=== PATIENT | male | born 1965 | race Caucasian/White ===

== ENCOUNTER 2021-12-16 08:29 | Outpatient (REF) | payer BC, SELFPAY ==
[2021-12-16 11:02] LABS: MANUAL DIFF FLAG NO
[2021-12-16 11:07] LABS: Basophils Absolute Auto 0.1 X10*3/uL (0.0-0.2); Basophils Percent Auto 0.8 % (0-2); Eosinophils Absolute Auto 0.1 X10*3/uL (0.0-0.4); Eosinophils Percent Auto 1.1 % (0-4); Hematocrit 43.6 % (42.0-52.0); Hemoglobin 14.5 g/dl (14.0-18.0); Imm Gran Abs Auto 0.01 X10*3/uL (0.00-0.03); Imm Gran Pct Auto 0.1 % (0.0-0.4); Lymphocytes Absolute Auto 2.4 X10*3/uL (1.2-4.9); Lymphocytes Percent Auto 31.6 % (20-40); Mean Corpuscular HGB Conc 33.3 g/dl (31.0-36.0); Mean Corpuscular Hemoglobin 32.8 pg (27.0-33.0); Mean Corpuscular Volume 98.6 fL (80.0-98.0); Mean Platelet Volume 11.9 fL (9.4-12.4); Monocytes Absolute Auto 0.7 X10*3/uL (0.1-1.2); Monocytes Percent Auto 9.4 % (2-11); Neutrophils Absolute Auto 4.3 x10*3/uL (2.0-8.3); Platelet Count 200 X10*3/uL (160-400); Red Blood Count 4.42 X10*6/uL (4.60-5.80); Red Cell Distribution Width 12.8 % (11.0-16.0); White Blood Count 7.5 X10*3/uL (4.8-10.8)
[2021-12-16 11:34] LABS: Alanine Aminotransferase 25 U/L (0-40); Albumin Level 4.2 g/dL (3.5-5.0); Alkaline Phosphatase 75 U/L (39-117); Anion Gap 10 (12-20); Aspartate Amino Transferase 23 U/L (5-37); Blood Urea Nitrogen 20 mg/dL (9-16); Calcium 9.4 mg/dL (8.4-10.2); Carbon Dioxide 29 mmol/L (22-29); Chloride 104 mmol/L (96-108); Cholesterol 193 mg/dL; Estimated Glomerular Filt Rate > 60; Glucose Fasting 88 mg/dL (60-99); HDL Cholesterol 47 mg/dL; LDL Cholesterol Calculated 123 mg/dl; Potassium 4.4 mmol/L (3.3-5.1); Sodium 139 mmol/L (135-145); Total Protein 7.3 g/dL (6.5-8.0); Triglycerides 116 mg/dL
[2021-12-16 11:41] LABS: Prostate Specific Antigen Scr 2.07 ng/mL (<0.05-4.0)
== END 2021-12-16 08:30 | disposition home or self-care (01) ==
LOC: HO.10HDL 08:29
PROVIDERS: Visit Provider Internal Medicine
DX: Z00.00 Encounter for general adult medical examination without abnormal findings (principal); Z12.5 Encounter for screening for malignant neoplasm of prostate
CPT/HCPCS: 36415; 80053; 80061; 84153; 85025

== ENCOUNTER 2022-03-18 15:50 | Outpatient (REF) | payer BC, SELFPAY ==
[2022-03-18 16:01] LABS: MANUAL DIFF FLAG NO
[2022-03-18 16:08] LABS: Basophils Absolute Auto 0.1 X10*3/uL (0.0-0.2); Basophils Percent Auto 0.5 % (0-2); Eosinophils Absolute Auto 0.1 X10*3/uL (0.0-0.4); Eosinophils Percent Auto 0.7 % (0-4); Hematocrit 41.9 % (42.0-52.0); Hemoglobin 14.3 g/dl (14.0-18.0); Imm Gran Abs Auto 0.03 X10*3/uL (0.00-0.03); Imm Gran Pct Auto 0.3 % (0.0-0.4); Lymphocytes Percent Auto 29.3 % (20-40); Mean Corpuscular HGB Conc 34.1 g/dl (31.0-36.0); Mean Corpuscular Hemoglobin 33.6 pg (27.0-33.0); Mean Corpuscular Volume 98.6 fL (80.0-98.0); Mean Platelet Volume 11.3 fL (9.4-12.4); Monocytes Absolute Auto 0.6 X10*3/uL (0.1-1.2); Monocytes Percent Auto 6.1 % (2-11); Neutrophils Absolute Auto 6.4 x10*3/uL (2.0-8.3); Neutrophils Percent Auto 63.1 % (45-73); Platelet Count 186 X10*3/uL (160-400); Red Blood Count 4.25 X10*6/uL (4.60-5.80); Red Cell Distribution Width 13.1 % (11.0-16.0); White Blood Count 10.1 X10*3/uL (4.8-10.8)
[2022-03-18 16:41] LABS: C Reactive Protein 0.09 mg/dL (< or = 0.50)
[2022-03-18 16:56] LABS: Lactate Dehydrogenase 155 U/L (118-273)
== END 2022-03-18 15:51 | disposition home or self-care (01) ==
LOC: HO.LAB 15:50
PROVIDERS: PCP Internal Medicine; Visit Provider Internal Medicine
DX: R19.09 Other intra-abdominal and pelvic swelling, mass and lump (principal)
CPT/HCPCS: 36415; 83615; 85025; 86140

== ENCOUNTER 2022-04-06 15:23 | Outpatient (REF) | payer BC, SELFPAY ==
--- NOTE | ~2022-04-06 | US_ITS ---
EXAMINATION: US EXTREMITY NON-VASCULAR, LIMITED CLINICAL INFORMATION: Left lateral inguinal nodule. COMPARISON: None TECHNIQUE: Limited ultrasound imaging through the left inguinal area was performed. FINDINGS: There is a complex cystic, solid, lobulated lesion with central heterogeneity and central vascularity on color ultrasound images. It measures 4.42 x 1.89 x 1.11 cm. There are small adjacent benign-appearing lymph nodes measuring 0.80 x 0.63 x 0.648 cm. There are additional lymph nodes which are also palpable measuring 0.9 x 0.45 x 0.69 cm. No evidence of hernia or fluid is seen. US/US extremity nonvascular [place] IMPRESSION: Complex larger lesion in the left inguinal region, likely an atypical lymph node. There are adjacent typical small, normal-appearing lymph nodes in the vicinity. Recommend ultrasound-guided fine-needle biopsy aspiration of this complex slightly vascular lesion.
== END 2022-04-06 15:24 | disposition home or self-care (01) ==
LOC: HO.HMGCX 15:23
PROVIDERS: Visit Provider Internal Medicine
DX: R22.42 Localized swelling, mass and lump, left lower limb (principal)
CPT/HCPCS: 76882

== ENCOUNTER → 2022-05-04 08:46 | Day surgery (SDC) | payer BC, SELFPAY ==
--- NOTE | ~2022-05-04 | US_ITS ---
EXAMINATION: ULTRASOUND-GUIDED BIOPSY LYMPH NODE CLINICAL INFORMATION: Left groin mass. COMPARISON: Previous ultrasound 04/06/2022. TECHNIQUE: Procedure and risks and benefits including bleeding and infection were discussed with the patient and informed consent was obtained. The left groin was prepped and draped in the usual sterile fashion. The skin and soft tissues were anesthetized with 1% lidocaine plain. Using ultrasound guidance and a coaxial system, access to the left groin mass was obtained. 5 20-gauge core biopsies were obtained. Specimens were sent for pathology and microbiology studies. FINDINGS: There is a 1.3 x 1.5 x 2 cm hypoechoic slightly heterogeneous lesion just deep to the skin with minimal peripheral vascularity in the left groin that was targeted for biopsy. There are adjacent small normal-appearing lymph nodes. US/US biopsy lymph node IMPRESSION: Ultrasound-guided biopsy of left groin mass.
[2022-05-04] MEDS: Lidocaine HCl 1 % MPF 5 ML VIAL SUBCUT (10:34)
== END ==
PROVIDERS: Radiology Diagnostic Radiology; PCP Internal Medicine; Visit Provider Internal Medicine
DX: R22.2 Localized swelling, mass and lump, trunk (principal)
CPT/HCPCS: 36415; 38505; 76942; 87071; 87073; 87205; 88184; 88185; 88305; 88341; 88342; 88360

== ENCOUNTER 2022-06-29 05:58 | Day surgery (SDC) | payer BC, SELFPAY ==
[2022-06-23 09:45] VITALS: BMI 26.4
--- NOTE | 2022-06-28 08:51 | P.CONAN_ITS ---
Documented by User: Leelee Childers NP 06/28/22 08:52 HPI - Anesthesia Eval Consult details Narrative: 56yo M for Left Excision inguinal lymph node PMFSH Active Problems Active Problems: All Active Problems (Updated 06/23/22 @ 09:48 by Janneth Shaw, RN) Inguinal lymphadenopathy (Acute) Past Medical History Medical History (Updated 06/23/22 @ 09:48 by Janneth Shaw, RN) Basal cell carcinoma No pertinent past medical history Surgical History Surgical History (Updated 06/23/22 @ 09:44 by Janneth Shaw, RN) History of basal cell carcinoma (BCC) excision Hx of colonoscopy Social History Social History Are you a primary daycare worker to a significant other at home: No Do you presently have visiting nurse or other home services: No Alcohol intake: current Alcohol intake frequency: a few times a week Patient Tobacco Use Status: Never used Tobacco Use of substances other than those prescribed or required for medical reasons: No Have you been hit, kicked, punched, or otherwise hurt by someone within the past year? If so, by whom?: No Are you DNR?: No Advance Directives: No Advance Directives Information Provided: Yes Advance Directives on File: No Recently lost weight without trying: No Eating poorly because of decreased appetite: No Nutrition Risks: No Nutritional Risk Meds Allergies Allergy/AdvReac Type Severity Reaction Status Date / Time No Known Allergies Allergy Unverified 06/23/22 09:44 Home Medications Medication Instructions Recorded Confirmed Last Taken Type No Known Home Meds 06/09/22 06/23/22 Unknown History Exam Exam Date and Time: June 28, 2022 0851 Height,Weight and Vital Signs: Height 5 ft 10 in Weight 83.461 kg Pertinent Lab Results Pertinent Lab Results: Laboratory Tests 12/16/21 03/18/22 08:35 16:01 WBC 10.1 Hgb 14.3 Hct 41.9 L Plt Count 186 Sodium 139 Potassium 4.4 Chloride 104 Carbon Dioxide 29 BUN 20 H Creatinine 1.07 Assessment and Plan Assessment Anesthesia Assessment: Chart Reviewed Documented by User: Christian Davies MD 06/29/22 07:09 [facility] Past Medical History Medical History (Updated 06/23/22 @ 09:48 by Janneth Shaw, RN) Basal cell carcinoma No pertinent past medical history Family History Family history of problems with anesthesia: No Surgical History Surgical History (Updated 06/23/22 @ 09:44 by Janneth Shaw RN) History of basal cell carcinoma (BCC) excision Hx of colonoscopy History of Problems with Anesthesia: No Social History Social History Are you a primary daycare worker to a significant other at home: No Do you presently have visiting nurse or other home services: No Alcohol intake: current Alcohol intake frequency: a few times a week Patient Tobacco Use Status: Never used Tobacco Use of substances other than those prescribed or required for medical reasons: No Have you been hit, kicked, punched, or otherwise hurt by someone within the past year? If so, by whom?: No Are you DNR?: No Advance Directives: No Advance Directives Information Provided: Yes Advance Directives on File: No Recently lost weight without trying: No Eating poorly because of decreased appetite: No Nutrition Risks: No Nutritional Risk Meds Allergies Allergy/AdvReac Type Severity Reaction Status Date / Time No Known Allergies Allergy Unverified 06/23/22 09:44 Home Medications Medication Instructions Recorded Confirmed Last Taken Type No Known Home Meds 06/09/22 06/23/22 Unknown History Exam Airway Mallampati Class: I TM Dist: >3cm Neck ROM: Full Loose/Missing/Broken Teeth: No Heart: ok Lungs: ok Assessment and Plan Final Anesthetic Review Family History of Problems with Anesthesia: No History of Problems with Anesthesia: No NPO: Yes ASA Class: I Final Preanesthetic Review: No Changes in Pt Med Stat, Meds/Allgs Chart Reviewed, Consent Obtained/Reviewed and Anes Risks/Benef Reviewed Patient Risk: Low Procedure Risk: Low Anesthetic Plan Anesthetic Plan: GA, MAC: and Agree w/ Assess. and Plan Disposition: Standard PACU
[2022-06-29 06:18] VITALS: BP 143/72; PULSE 52; RESP 16; TEMP 36.8; O2SAT 100
[2022-06-29] MEDS: Lactated Ringers 1,000 ML 100 ML IVCONT (06:27)
--- NOTE | 2022-06-29 07:17 | MHC.SHP ---
Pre-Procedural Eval Section A Date of Service: 06/29/22 The patient is an INPATIENT: No Changes since office visit: Yes Patient answered all questions; No Cold of Flu in the past 2 weeks, No New Medical Problems and No Changes in Medication The History & Physical has been completed within 30 days and I have reviewed it.: Yes Section B Chief Complaint: Localized enlarged lymph nodes Allergies: Allergies Allergy/AdvReac Type Severity Reaction Status Date / Time No Known Allergies Allergy Unverified 06/23/22 09:44 Plan Diagnosis/Plan: Unchanged I have reviewed the history and physical and performed a pertinent physical examination on my patient. No changes have occurred unless specified.
--- NOTE | 2022-06-29 08:21 | P.OP_ITS ---
Operative Note Operative Note Date of Service: 06/29/22 Narrative: Preoperative diagnosis: Left inguinal lymphadenopathy Postoperative diagnosis: same Procedure: excision of left inguinal lymph node Surgeon: Davon Polanco MD Box Truck Driver: AAKASH Mcallister Anesthesia:MAC Indications for procedure: 56-year-old male patient presenting with enlarged lymph nodes in the left inguinal region. Previous needle biopsy was nondiagnostic. Patient presents now for of excision of enlarged lymph nodes. Operative findings: multiple enlarged lymph nodes the largest measuring approximately 2.0 cm. Specimen: lymph node Estimated blood loss: less than 2 mL Complications: none Procedure details: patient was brought to the OR placed in a supine position. After administering sedation the patient's left groin was prepped with ChloraPrep and draped in a sterile fashion. A surgical time-out was called the consent confirmed. Patient received preoperative antibiotics and Venodyne boots were in place. Local anesthesia consisting of 1% lidocaine plain followed by 0.5% Sensorcaine was infiltrated over the palpable lymph node just above the left inguinal crease. Incision was then made in the same location carried out through subcutaneous tissue up to the palpable lymph node. Electrocautery was then used to dissect around the lymph node completely. Several smaller lymph nodes were noted in the region over left in place. Hemostasis was assured all times using electrocautery. Specimen was removed and sent immediately to pathology for further examination. After assuring adequate hemostasis the wounds were irrigated with saline solution and suctioned dry. Deep tissue was reapproximated using interrupted 3- 0 Polysorb sutures. Dermis was reapproximated using interrupted 3-0 Polysorb sutures. Skin was then closed using a running subcuticular 4-0 Polysorb suture. Steri-Strips, 2 x 2 gauze and Tegaderm were then applied. The patient tolerated the procedure well. Sponge, instrument, and needle counts reported as correct. The patient was transferred to PACU in stable condition.
[2022-06-29 08:28] VITALS: BP 140/86; PULSE 49; RESP 14; TEMP 36.2; O2SAT 100
[2022-06-29 08:51] VITALS: BP 138/84; PULSE 46; RESP 18; TEMP 36.2; O2SAT 100
== END 2022-06-29 09:23 | disposition home or self-care (01) ==
PROVIDERS: PCP Internal Medicine; Visit Provider Surgery
PROC: (CPT 38531; principal; 2022-06-29 07:30)
DX: R59.0 Localized enlarged lymph nodes (principal); Z85.828 Personal history of other malignant neoplasm of skin
CPT/HCPCS: 38531; 36415; 88184; 88185; 88305; 88341; 88342; 88360; 88374; 88377; J0690; J2250; J2795; J3010

== ENCOUNTER 2023-11-30 15:05 | Outpatient (REF) | payer BC, SELFPAY ==
--- NOTE | ~2023-11-30 | XR_ITS ---
EXAMINATION: XR cervical spine 5V CLINICAL INFORMATION: Pain COMPARISON: None TECHNIQUE: 6 views of the cervical spine were obtained. FINDINGS: The cervical spine is visualized to the level of C6-C7 on the lateral view. Vertebral body alignment is maintained. Vertebral body heights are maintained. Lateral masses of C1 are well aligned on C2. Visualized portion of the dens is intact. Moderate degenerative disc disease at C5-C6, manifested by loss of disc space height. Uncovertebral hypertrophy and facet arthropathy results in moderate to severe neural foraminal narrowing on the right at multiple levels and in moderate to severe neural foraminal narrowing on the left at C4-C5 and C5-C6. No prevertebral soft tissue swelling. XR/XR cervical spine 5V IMPRESSION: 1. Moderate degenerative disc disease at C5-C6, manifested by loss of disc space height. 2. Uncovertebral hypertrophy and facet arthropathy results in moderate to severe neural foraminal narrowing on the right at multiple levels and in moderate to severe neural foraminal narrowing on the left at C4-C5 and C5-C6.
== END 2023-11-30 15:06 | disposition home or self-care (01) ==
LOC: HO.XRAY 15:05
PROVIDERS: PCP Internal Medicine; Visit Provider Internal Medicine
DX: M54.2 Cervicalgia (principal)
CPT/HCPCS: 72050

== ENCOUNTER 2024-04-18 07:57 | Outpatient (REF) | payer BC, SELFPAY ==
[2024-04-18 10:43] LABS: Basophils Absolute Auto 0.1 X10*3/uL (0.0-0.2); Basophils Percent Auto 0.6 % (0-2); Eosinophils Absolute Auto 0.1 X10*3/uL (0.0-0.4); Eosinophils Percent Auto 1.5 % (0-4); Hematocrit 42.5 % (42.0-52.0); Hemoglobin 14.6 g/dl (14.0-18.0); Imm Gran Abs Auto 0.03 X10*3/uL (0.00-0.03); Imm Gran Pct Auto 0.3 % (0.0-0.4); Lymphocytes Absolute Auto 3.5 X10*3/uL (1.2-4.9); Lymphocytes Percent Auto 38.2 % (20-40); MANUAL DIFF FLAG NO; Mean Corpuscular HGB Conc 34.4 g/dl (31.0-36.0); Mean Corpuscular Hemoglobin 33.1 pg (27.0-33.0); Mean Corpuscular Volume 96.4 fL (80.0-98.0); Mean Platelet Volume 12.1 fL (9.4-12.4); Monocytes Absolute Auto 0.7 X10*3/uL (0.1-1.2); Neutrophils Absolute Auto 4.7 x10*3/uL (2.0-8.3); Neutrophils Percent Auto 51.4 % (45-73); Platelet Count 198 X10*3/uL (160-400); Red Blood Count 4.41 X10*6/uL (4.60-5.80); White Blood Count 9.1 X10*3/uL (4.8-10.8)
[2024-04-18 11:03] LABS: Alanine Aminotransferase 24 U/L (0-40); Albumin Level 4.2 g/dL (3.5-5.0); Alkaline Phosphatase 73 U/L (39-117); Anion Gap 10 (12-20); Aspartate Amino Transferase 21 U/L (5-37); Bilirubin Total 0.7 mg/dL (0.0-1.0); Blood Urea Nitrogen 18 mg/dL (9-16); Calcium 9.3 mg/dL (8.4-10.2); Carbon Dioxide 26 mmol/L (22-29); Chloride 107 mmol/L (96-108); Cholesterol 174 mg/dL (<200); Estimated Glomerular Filt Rate > 60; Glucose Fasting 83 mg/dL (60-99); HDL Cholesterol 50 mg/dL (>40); LDL Cholesterol Calculated 108 mg/dL (<100); Sodium 139 mmol/L (135-145); Total Protein 7.4 g/dL (6.5-8.0); Triglycerides 80 mg/dL (<150)
== END 2024-04-18 07:58 | disposition home or self-care (01) ==
LOC: HO.10HDL 07:57
PROVIDERS: Visit Provider Internal Medicine
DX: N40.0 Benign prostatic hyperplasia without lower urinary tract symptoms (principal); Z12.5 Encounter for screening for malignant neoplasm of prostate; Z86.010 Personal history of colon polyps
CPT/HCPCS: 36415; 80053; 80061; 84153; 85025